=== PATIENT | male | born 1980 | race Caucasian/White ===

== ENCOUNTER 2021-01-09 08:37 | Emergency (ER) | payer OTHER ==
[~2021-01-09] VITALS: Ht 175.3 cm; Wt 113.4 kg
[2021-01-09 08:48] VITALS: BP_SYST 175
[2021-01-09 09:11] VITALS: BP_SYST 175
== END 2021-01-09 09:11 ==
LOC: SED 08:37
DX: Z04.3 Encounter for examination and observation following other accident (principal); V49.9XXA Car occupant (driver) (passenger) injured in unspecified traffic accident, initial encounter; Y93.89 Activity, other specified; Y92.89 Other specified places as the place of occurrence of the external cause; Y99.8 Other external cause status
CPT/HCPCS: 99283